=== PATIENT | male | born 1995 | race Caucasian/White ===

== ENCOUNTER 2017-05-18 07:54 | Emergency (ER) | payer SELFPAY ==
[~2017-05-18] VITALS: Ht 177.8 cm; Wt 63.5 kg
[2017-05-18 07:57] VITALS: BP_SYST 119
[2017-05-18 08:46] VITALS: BP_SYST 122
== END 2017-05-18 08:46 ==
LOC: SED 07:54
DX: S00.81XA Abrasion of other part of head, initial encounter (principal); Z88.5 Allergy status to narcotic agent; X58.XXXA Exposure to other specified factors, initial encounter; Y93.89 Activity, other specified; Y92.89 Other specified places as the place of occurrence of the external cause; Y99.8 Other external cause status
CPT/HCPCS: 99283